=== PATIENT | male | born 1960 | race Caucasian/White ===

== ENCOUNTER 2018-10-16 02:36 | Inpatient (IN) | payer BC ==
[2018-10-16] MEDS ORDERED: ONDANSETRON 4 MG/2 ML VIAL ONE ×2 (03:26→05:54)
[2018-10-16] MEDS ORDERED: NA CHLORIDE 0.9% 1,000 ML ONE (03:26)
[2018-10-16] MEDS ORDERED: FENTANYL CITR 100 MCG/2 ML ONE ×2 (03:26→05:54)
[2018-10-16 03:32] LABS: Absolute Lymphocytes (CBC) 2.8 K/uL (0.7-4.9); Basophils % 1.3 % (0-1.3); Eosinophils % 1.3 % (0-4.4); Hematocrit 51.1 % (39.6-49.0); Lymphocytes % 25.2 % (15.3-44.8); Monocytes % 5.5 % (3.3-12.3); RBC Red Blood Cell Count 5.67 M/uL (4.33-5.43)
[2018-10-16 03:42] LABS: Albumin 4.4 g/dL (3.4-5.0); Bilirubin Total 0.3 mg/dL (0.2-1.0); Potassium 3.1 mmol/L (3.5-5.1); Protein, Total 8.4 g/dL (6.4-8.2)
[2018-10-16] MEDS ORDERED: PIPER/TAZO/NS 3.375gm 3.375 GM/100 ML BAG ONE (05:42)
[2018-10-16] MEDS ORDERED: MORPHINE 4 MG/ML SYR ONE (07:32)
[2018-10-16] MEDS ORDERED: KETOROLAC 30 MG/ML INJ ONE (07:40)
[2018-10-16] MEDS ORDERED: PROMETHAZINE 25 MG/ML VIAL ONE (07:42)
[2018-10-16 07:43] LABS: Urine Blood 1+ (NEG); Urine Glucose NEGATIVE (NEG); Urine Protein 2+ (NEG); Urine Specific Gravity 1.015 (1.005-1.030)
--- NOTE | 2018-10-16 08:33 | EDPHYS ---
Physician Documentation [facility] Name: Demetrio Alvarado Jr Age: 58 yrs Sex: Male : 1960 Arrival Date: 10/16/2018 Time: 02:37 Bed 8 Private MD: ED Physician Vishal Frye HPI: 10/16 03:15 This 58 yrs old Male presents to ER via Wheelchair with complaints of ps1 Abdominal Pain, Vomiting. 03:15 patient has a history of stomach ulcers, gout, HTN, presenting with epigastric pain and ps1 nausea and vomiting. States that he started tonight at 11pm after eating Serbian food. Multiple episodes of vomiting, appears to be food products. No blood. . Historical: - Allergies: 03:02 PENICILLINS; ea - Home Meds: 03:02 tramadol 50 mg Oral tab 1 tab every 6 hours [Active]; gabapentin 300 mg oral cap 1 cap ea 3 times per day [Active]; methocarbamol 500 mg Oral tab 1 tabs 4 times per day [Active]; prednisone 10 mg Oral tab 1 tab [Active]; Allopurinol Oral [Active]; - PMHx: 03:03 Hypertension; ea - PSHx: 03:03 knee surgery; ea - Immunization history:: Adult Immunizations up to date. - Social history:: Smoking status: Patient/guardian denies using tobacco. - Ebola Screening: : No symptoms or risks identified at this time. ROS: 03:15 Constitutional: Negative for fever, chills, and weight loss, Eyes: Negative for injury, ps1 pain, redness, and discharge, Cardiovascular: Negative for chest pain, palpitations, and edema, Respiratory: Negative for shortness of breath, cough, wheezing, and pleuritic chest pain, MS/Extremity: Negative for injury and deformity, Skin: Negative for injury, rash, and discoloration. 03:15 Abdomen/GI: Positive for nausea and vomiting. Exam: 03:15 Constitutional: This is a well developed, well nourished patient who is awake, alert, ps1 and in no acute distress. Head/Face: Normocephalic, atraumatic. Chest/axilla: Normal chest wall appearance and motion. Nontender with no deformity. No lesions are appreciated. Cardiovascular: Regular rate and rhythm. No gallops, murmurs, or rubs. Normal PMI, no JVD. No pulse deficits. Respiratory: Lungs have equal breath sounds bilaterally, clear to auscultation and percussion. No rales, rhonchi or wheezes noted. No increased work of breathing, no retractions or nasal flaring. Skin: Warm, dry with normal turgor. Normal color with no rashes, no lesions, and no evidence of cellulitis. MS/ Extremity: Pulses equal, no cyanosis. Neurovascular intact. Full, normal range of motion. Neuro: Awake and alert, GCS 15, oriented to person, place, time, and situation. Cranial nerves II-XII grossly intact. Sensory grossly intact. 03:15 Abdomen/GI: Inspection: abdomen appears normal, Bowel sounds: normal, Palpation: moderate abdominal tenderness, in the epigastric area. Vital Signs: 03:03 BP 168 / 86; Pulse 84; Resp 20; Temp 97.4; Pulse Ox 99% on R/A; Weight 117.93 kg; ea Height 6 ft. 3 in. (190.50 cm); 04:00 BP 147 / 84; Pulse 67; Resp 18; Pulse Ox 96% on R/A; aa1 05:00 BP 153 / 88; Pulse 66; Resp 18; Pulse Ox 96% on R/A; aa1 06:00 BP 157 / 82; Pulse 74; Resp 18; Pulse Ox 96% on R/A; aa1 06:56 BP 163 / 89; Pulse 78; Resp 18; Pulse Ox 98% on R/A; aa1 08:00 BP 129 / 77; Pulse 80; Resp 16; Pulse Ox 99% on R/A; tr5 09:15 BP 119 / 65; Pulse 70; Resp 15; Pulse Ox 97% on R/A; tr5 03:03 Body Mass Index 32.50 (117.93 kg, 190.50 cm) ea MDM: 03:10 Patient medically screened. ps1 08:30 Data reviewed: vital signs, nurses notes. Data interpreted: Pulse oximetry: on room air kb is 99 %. Interpretation: normal. Counseling: I had a detailed discussion with the patient and/or guardian regarding: the historical points, exam findings, and any diagnostic results supporting the discharge/admit diagnosis, lab results, radiology results, the need for further work-up and treatment in the hospital. Physician consultation: Jordin Gerardo MD was contacted at 08:25, regarding admission, to the medical/surgical unit. consult, patient's condition, and will see patient in inpatient room. 08:31 Physician consultation: Aime Palacios DO was contacted at 08:32, regarding admission, kb to the medical/surgical unit. patient's condition, and will see patient in ED, shortly. 10/16 02:59 Order name: CBC with Diff ps1 10/16 02:59 Order name: Lipase; Complete Time: 03:43 ps1 10/16 02:59 Order name: CMP; Complete Time: 03:43 ps1 10/16 02:59 Order name: CT Abd/Pelvis - IV Contrast Only ps1 10/16 03:00 Order name: CBC with Automated Diff; Complete Time: 03:46 EDMS 10/16 07:33 Order name: Urine Dipstick--Ancillary (enter results); Complete Time: 07:47 eb 10/16 04:41 Order name: Abdomen Limited US; Complete Time: 08:59 ps1 10/16 02:59 Order name: IV Saline Lock; Complete Time: 03:07 ps1 10/16 02:59 Order name: Labs collected and sent; Complete Time: 03:07 ps1 10/16 02:59 Order name: Urine Dipstick-Ancillary (obtain specimen); Complete Time: 07:38 ps1 Administered Medications: 03:10 Drug: Zofran 4 mg Route: IVP; Site: right forearm; aa1 04:10 Follow up: Response: No adverse reaction; Nausea is decreased aa1 03:10 Drug: NS 0.9% 1000 ml Route: IV; Rate: 1 bolus; Site: right forearm; aa1 04:10 Follow up: IV Status: Completed infusion; IV Intake: 1000ml aa1 03:12 Drug: fentaNYL (PF) 100 mcg Route: IVP; Site: right forearm; aa1 04:12 Follow up: Response: No adverse reaction; Pain is decreased aa1 07:00 Follow up: Response: Pain is unchanged, physician notified tr5 05:35 Drug: Zosyn 4.5 grams Route: IVPB; Infused Over: 60 mins; Site: right forearm; aa1 06:35 Follow up: IV Status: Completed infusion; IV Intake: 100ml tl2 06:35 Follow up: IV Status: Completed infusion aa1 05:40 Drug: Zofran 4 mg Route: IVP; Site: right forearm; aa1 09:41 Follow up: Response: Nausea unchanged tr5 05:42 Drug: fentaNYL (PF) 100 mcg Route: IVP; Site: right forearm; aa1 09:41 Follow up: Response: Nausea unchanged tr5 07:35 Drug: Phenergan 12.5 mg Route: IVP; Site: right antecubital; sv 08:23 Follow up: Response: Nausea is decreased tr5 07:35 Drug: TORadol - Ketorolac 15 mg Route: IVP; Site: right antecubital; sv 08:23 Follow up: Response: Pain is decreased tr5 07:36 Not Given (Patient Refused): morphine 4 mg IVP once sv 08:50 Drug: Flagyl 500 mg Volume: 100 ml; Route: IVPB; Rate: 200 ml/hr; Infused Over: 30 ss mins; Site: right antecubital; 09:36 Follow up: Response: No adverse reaction; IV Status: Completed infusion tr5 09:59 Follow up: Response: No adverse reaction; IV Status: Completed infusion tr5 09:36 Drug: NS 0.9% with KCl 40 mEq/L 1000 ml Route: IV; Rate: 125 ml/hr; Site: left forearm; tr5 10:06 Follow up: Response: No adverse reaction; IV Status: Infusion continued upon admission tr5 09:36 Drug: Cipro 400 mg Volume: 200 ml; Route: IVPB; Infused Over: 60 mins; Site: left tr5 forearm; 09:59 Follow up: Response: No adverse reaction; IV Status: Completed infusion tr5 Disposition: 10/16/18 08:32 Hospitalization ordered by Aime Palacios for Inpatient Admission. Preliminary diagnosis is Cholecystitis, unspecified. - Bed requested for Telemetry/MedSurg (Inpatient). - Status is Inpatient Admission. tr5 - Condition is Stable. - Problem is new. - Symptoms are unchanged. UTI on Admission? No Addendum: 10/18/2018 14:02 Co-signature as Attending Physician, Vishal Frye MD Available for consultation at p s1 all times . Signatures: Dispatcher [employer] EDRI Kathi Pisano, ARCELIA BUTT-Payal Paulino RN RN Shari Barkley RN RN aa1 Judith Calzada RN RN Millicent Bales, RN RN Domingo Schmidt, RN RN ja1 Vishal Frye MD MD ps1 Stan White RN RN tr5 Edna Taylor RN tl2 Corrections: (The following items were deleted from the chart) 10/16 08:57 08:32 Hospitalization Ordered by Aime Palacios DO for Inpatient Admission. Preliminary ja1 diagnosis is Cholecystitis, unspecified. Bed requested for Telemetry/MedSurg (Inpatient). Status is Inpatient Admission. Condition is Stable. Problem is new. Symptoms are unchanged. UTI on Admission? No. kb 10:07 08:57 10/16/2018 08:32 Hospitalization Ordered by Aime Palacios DO for Inpatient tr5 Admission. Preliminary diagnosis is Cholecystitis, unspecified. Bed requested for Telemetry/MedSurg (Inpatient). Status is Inpatient Admission. Condition is Stable. Problem is new. Symptoms are unchanged. UTI on Admission? No. ja1
--- NOTE | 2018-10-16 08:33 | ER ---
Nurse's Notes [facility] Name: Demetrio Alvarado Jr Age: 58 yrs Sex: Male : 1960 Arrival Date: 10/16/2018 Time: 02:37 Bed 8 Private MD: Diagnosis: Cholecystitis, unspecified Presentation: 10/16 02:55 Presenting complaint: Patient states: Reports epigastric abdominal pain that started at ea 2300 and progressively got worse, pt reports he started vomiting about an hour ago, had vomiting episodes x 3. Transition of care: patient was not received from another setting of care. Onset of symptoms was October 16, 2018. Risk Assessment: Do you want to hurt yourself or someone else? Patient reports no desire to harm self or others. Initial Sepsis Screen: Does the patient meet any 2 criteria? No. Patient's initial sepsis screen is negative. Does the patient have a suspected source of infection? No. Patient's initial sepsis screen is negative. Care prior to arrival: None. 02:55 Method Of Arrival: Wheelchair ea 02:55 Acuity: ALEXANDRA 3 ea Triage Assessment: 03:05 General: Appears uncomfortable, Behavior is calm, cooperative, appropriate for age. ea Pain: Complains of pain in epigastric area. Neuro: Level of Consciousness is awake, alert, obeys commands, Oriented to person, place, time. Cardiovascular: Patient's skin is warm and dry. GI: Parent/caregiver reports the patient having vomiting. Derm: Skin is pink, warm \T\ dry. Historical: - Allergies: 03:02 PENICILLINS; ea - Home Meds: 03:02 tramadol 50 mg Oral tab 1 tab every 6 hours [Active]; gabapentin 300 mg oral cap 1 cap ea 3 times per day [Active]; methocarbamol 500 mg Oral tab 1 tabs 4 times per day [Active]; prednisone 10 mg Oral tab 1 tab [Active]; Allopurinol Oral [Active]; - PMHx: 03:03 Hypertension; ea - PSHx: 03:03 knee surgery; ea - Immunization history:: Adult Immunizations up to date. - Social history:: Smoking status: Patient/guardian denies using tobacco. - Ebola Screening: : No symptoms or risks identified at this time. Screenin:57 Abuse screen: Denies threats or abuse. Nutritional screening: No deficits noted. ea Tuberculosis screening: No symptoms or risk factors identified. Fall Risk None identified. Assessment: 03:00 General: Appears in no apparent distress. uncomfortable, Behavior is cooperative, aa1 appropriate for age, restless. Pain: Complains of pain in epigastric area Pain began 4 hours ago. Is continuous. Neuro: Level of Consciousness is awake, alert, obeys commands, Oriented to person, place, time, situation, Moves all extremities. Full function Speech is normal. Cardiovascular: Denies chest pain, Heart tones S1 S2 present Rhythm is regular. Respiratory: Airway is patent Respiratory effort is even, unlabored, Respiratory pattern is regular, symmetrical. GI: Abdomen is non-distended, Bowel sounds present X 4 quads. Abd is soft X 4 quads Reports upper abdominal pain, epigastric pain, nausea, vomiting. : No signs and/or symptoms were reported regarding the genitourinary system. EENT: No signs and/or symptoms were reported regarding the EENT system. Derm: Skin is intact, is healthy with good turgor, Skin is pink, warm \T\ dry. Musculoskeletal: Circulation, motion, and sensation intact. Capillary refill < 3 seconds. 04:00 Reassessment: Patient appears in no apparent distress at this time. Patient and/or aa1 family updated on plan of care and expected duration. Pain level reassessed. Patient is alert, oriented x 3, equal unlabored respirations, skin warm/dry/pink. Awaiting CT results. 04:46 Reassessment: Patient appears in no apparent distress at this time. Patient and/or aa1 family updated on plan of care and expected duration. Pain level reassessed. Patient is alert, oriented x 3, equal unlabored respirations, skin warm/dry/pink. Awaiting u/s. 05:35 Reassessment: Patient appears in no apparent distress at this time. Patient and/or aa1 family updated on plan of care and expected duration. Pain level reassessed. Patient is alert, oriented x 3, equal unlabored respirations, skin warm/dry/pink. Pt requesting more pain and nausea medication. 06:56 Reassessment: Patient appears in no apparent distress at this time. Patient and/or aa1 family updated on plan of care and expected duration. Pain level reassessed. Patient is alert, oriented x 3, equal unlabored respirations, skin warm/dry/pink. Pt still awaiting u/s. 07:06 Reassessment: Pt c/o increased pain. Kathi Pisano [employer] notified. fc 07:37 Reassessment: Patient states symptoms have not improved. GI: Reports nausea, vomiting. sv 08:45 Reassessment: Patient appears in no apparent distress at this time. Patient and/or tr5 family updated on plan of care and expected duration. Pain level reassessed. Patient states feeling better. Vital Signs: 03:03 BP 168 / 86; Pulse 84; Resp 20; Temp 97.4; Pulse Ox 99% on R/A; Weight 117.93 kg; ea Height 6 ft. 3 in. (190.50 cm); 04:00 BP 147 / 84; Pulse 67; Resp 18; Pulse Ox 96% on R/A; aa1 05:00 BP 153 / 88; Pulse 66; Resp 18; Pulse Ox 96% on R/A; aa1 06:00 BP 157 / 82; Pulse 74; Resp 18; Pulse Ox 96% on R/A; aa1 06:56 BP 163 / 89; Pulse 78; Resp 18; Pulse Ox 98% on R/A; aa1 08:00 BP 129 / 77; Pulse 80; Resp 16; Pulse Ox 99% on R/A; tr5 09:15 BP 119 / 65; Pulse 70; Resp 15; Pulse Ox 97% on R/A; tr5 03:03 Body Mass Index 32.50 (117.93 kg, 190.50 cm) ea ED Course: 02:37 Patient arrived in ED. ds1 02:47 Vishal Frye MD is Attending Physician. ps1 02:57 Triage completed. ea 02:59 Arm band placed on right wrist. Patient placed in an exam room, on a stretcher, on ea pulse oximetry. 03:03 Patient has correct armband on for positive identification. Bed in low position. Call ea light in reach. 03:07 Initial lab(s) drawn, by me, sent to lab. Inserted saline lock: 20 gauge in right aa1 forearm, using aseptic technique. Blood collected. 03:27 Radiology exam delayed due to lab results not completed at this time. (BUN/Creatinine). ls3 04:19 CT Abd/Pelvis - IV Contrast Only In Process Unspecified. EDMS 06:40 [facility] kb 07:01 Report given to Payal Mesa RN. aa1 07:35 Payal Mesa RN is Primary Nurse. sv 08:01 Ultrasound completed. Patient tolerated well. sg3 08:02 Abdomen Limited US In Process Unspecified. EDMS 08:32 Aime Palacios DO is Hospitalizing Provider. kb 08:58 Primary Nurse role handed off by Payal Mesa RN sv 08:58 Stan White RN is Primary Nurse. sv 09:13 Inserted saline lock: 20 gauge in left forearm, using aseptic technique. tr5 09:30 IV discontinued, 20 gauge to R forearm d/c'd. tr5 09:57 No provider procedures requiring assistance completed. tr5 Administered Medications: 03:10 Drug: Zofran 4 mg Route: IVP; Site: right forearm; aa1 04:10 Follow up: Response: No adverse reaction; Nausea is decreased aa1 03:10 Drug: NS 0.9% 1000 ml Route: IV; Rate: 1 bolus; Site: right forearm; aa1 04:10 Follow up: IV Status: Completed infusion; IV Intake: 1000ml aa1 03:12 Drug: fentaNYL (PF) 100 mcg Route: IVP; Site: right forearm; aa1 04:12 Follow up: Response: No adverse reaction; Pain is decreased aa1 07:00 Follow up: Response: Pain is unchanged, physician notified tr5 05:35 Drug: Zosyn 4.5 grams Route: IVPB; Infused Over: 60 mins; Site: right forearm; aa1 06:35 Follow up: IV Status: Completed infusion; IV Intake: 100ml tl2 06:35 Follow up: IV Status: Completed infusion aa1 05:40 Drug: Zofran 4 mg Route: IVP; Site: right forearm; aa1 09:41 Follow up: Response: Nausea unchanged tr5 05:42 Drug: fentaNYL (PF) 100 mcg Route: IVP; Site: right forearm; aa1 09:41 Follow up: Response: Nausea unchanged tr5 07:35 Drug: Phenergan 12.5 mg Route: IVP; Site: right antecubital; sv 08:23 Follow up: Response: Nausea is decreased tr5 07:35 Drug: TORadol - Ketorolac 15 mg Route: IVP; Site: right antecubital; sv 08:23 Follow up: Response: Pain is decreased tr5 07:36 Not Given (Patient Refused): morphine 4 mg IVP once sv 08:50 Drug: Flagyl 500 mg Volume: 100 ml; Route: IVPB; Rate: 200 ml/hr; Infused Over: 30 ss mins; Site: right antecubital; 09:36 Follow up: Response: No adverse reaction; IV Status: Completed infusion tr5 09:59 Follow up: Response: No adverse reaction; IV Status: Completed infusion tr5 09:36 Drug: NS 0.9% with KCl 40 mEq/L 1000 ml Route: IV; Rate: 125 ml/hr; Site: left forearm; tr5 10:06 Follow up: Response: No adverse reaction; IV Status: Infusion continued upon admission tr5 09:36 Drug: Cipro 400 mg Volume: 200 ml; Route: IVPB; Infused Over: 60 mins; Site: left tr5 forearm; 09:59 Follow up: Response: No adverse reaction; IV Status: Completed infusion tr5 Intake: 04:10 IV: 1000ml; Total: 1000ml. aa1 06:35 IV: 100ml; Total: 1100ml. tl2 Output: 07:30 Gastric: 300ml (Emesis); Total: 300ml. sv Outcome: 08:32 Decision to Hospitalize by Provider. kb 10:06 Admitted to Med/surg accompanied by nurse, via wheelchair, with chart. tr5 10:06 Condition: stable 10:06 Instructed on the need for admit. 10:07 Patient left the ED. tr5 Signatures: Dispatcher [employer] EDLA Kathi Pisano, ARCELIA BUTT-Payal Paulino RN RN sv Autenrieth, Alissa, RN RN aa1 Sandra Thorpe RN RN fc Sanford, Demi ds1 Judith Calzada RN RN ss Knox, Taylor, RN RN tl2 Millicent Bales RN RN ea Singer, Phillip, MD MD ps1 Godinez, Sarah sg3 Siler, Lynzie 3 Stan White RN RN tr5 Corrections: (The following items were deleted from the chart) 09:41 09:15 BP 199 / 65; Pulse 70bpm; Resp 15bpm; Pulse Ox 97% RA; tr5 tr5
--- NOTE | 2018-10-16 08:56 | RAD REPORT ---
EXAM DESCRIPTION: US - Abdomen Exam Limited - 10/16/2018 8:02 am CLINICAL HISTORY: Abdominal pain. COMPARISON: October 16, 2018 cat scan FINDINGS: Multiple gallstones. Borderline gallbladder distention. Gallbladder wall is not thickened. Limited evaluation of the common bile duct. It is not dilated on the CT scan IMPRESSION: Cholelithiasis
[2018-10-16] MEDS ORDERED: POTASSIUM CL 40 MEQ in NA CHLORIDE 0.9% 1,000 ML IV SCH (09:00)
[2018-10-16] MEDS ORDERED: CIPROFLOXACIN 400mg IV 400 MG/200 ML BAG IV ONE (09:05)
[2018-10-16] MEDS ORDERED: METRONIDAZOLE 500mg IVPB 500 MG/100 ML BAG IV ONE (09:05)
[2018-10-16] MEDS ORDERED: ONDANSETRON 4 MG/2 ML VIAL IV PRN (10:29)
[2018-10-16] MEDS ORDERED: ACETAMINOPHEN 650MG/RECT SUPP PR PRN (10:29)
[2018-10-16] MEDS: NA CHLORIDE 0.9% 1,000 ML IV SCH ×2 (10:29→17:29)
[2018-10-16] MEDS ORDERED: PROMETHAZINE 25 MG/ML VIAL IV PRN (10:29)
[2018-10-16] MEDS ORDERED: HYDROCORTISONE SUC 100 MG INJ IV ONE (10:29)
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
[2018-10-16] MEDS: FAMOTIDINE 20 MG/2 ML VIAL IV SCH ×2 (13:23→22:10)
[2018-10-16] MEDS: ENOXAPARIN 40 MG/0.4 ML SQ SCH (13:23)
[2018-10-16] MEDS: MORPHINE 2 MG/ML SYR IV PRN ×2 (13:34→17:29)
[2018-10-16 16:55] LABS: Urine Appearance CLEAR; Urine Bilirubin NEGATIVE (NEG); Urine Blood TRACE (NEG); Urine Color YELLOW; Urine Glucose NEGATIVE (NEG); Urine Protein 1+ (NEG); Urine Specific Gravity 1.015 (1.005-1.030); Urine Urobilinogen 0.2 mg/dL (0.2-1.0)
[2018-10-16] MEDS: METRONIDAZOLE 500mg IVPB 500 MG/100 ML BAG IV SCH (17:10)
[2018-10-16 17:17] LABS: Urine Microscopic Reflex ORDER UMIC
[2018-10-16] MEDS ORDERED: TRAMADOL HCL 50 MG TAB PO PRN (17:19)
[2018-10-16 17:32] LABS: Urine Bacteria NONE SEEN /HPF (NONE SEEN); Urine Culture Reflex Order NOT NEEDED; Urine RBC <5 /HPF (NONE SEEN)
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
[2018-10-16] MEDS: GABAPENTIN 300 MG CAP PO SCH (21:00)
[2018-10-16] MEDS: CIPROFLOXACIN 400mg IV 400 MG/200 ML BAG IV SCH (21:00)
[2018-10-16] MEDS: KETOROLAC 30 MG/ML INJ IV PRN (22:10)
[2018-10-17] MEDS: METRONIDAZOLE 500mg IVPB 500 MG/100 ML BAG IV SCH ×3 (00:22→16:26)
[2018-10-17] MEDS: KETOROLAC 30 MG/ML INJ IV PRN ×3 (05:20→23:34)
[2018-10-17 05:53] LABS: Absolute Lymphocytes (CBC) 2.3 K/uL (0.7-4.9); Basophils % 1.4 % (0-1.3); Eosinophils % 2.6 % (0-4.4); Hematocrit 44.5 % (39.6-49.0); Lymphocytes % 31.5 % (15.3-44.8); MPV 7.4 fL (7.6-11.3); RBC Red Blood Cell Count 4.94 M/uL (4.33-5.43)
[2018-10-17 06:06] LABS: BUN Blood Urea Nitrogen 9 mg/dL (7-18); Bicarbonate 31 mmol/L (21-32); Glucose Level 92 mg/dL (74-106); Magnesium 2.2 mg/dL (1.8-2.4); Potassium 3.9 mmol/L (3.5-5.1); Sodium Level 142 mmol/L (136-145)
[2018-10-17] MEDS ORDERED: KCL 20 MEQ/100 mL IVPB 20 MEQ/100 ML BAG IV SCH (07:00)
[2018-10-17] MEDS: ENOXAPARIN 40 MG/0.4 ML SQ SCH (08:13)
[2018-10-17] MEDS: FAMOTIDINE 20 MG/2 ML VIAL IV SCH ×2 (08:13→20:25)
[2018-10-17] MEDS: GABAPENTIN 300 MG CAP PO SCH ×3 (08:13→20:13)
[2018-10-17] MEDS: ACETAMINOPHEN 500 MG TAB PO PRN ×2 (08:28→20:24)
[2018-10-17] MEDS: CIPROFLOXACIN 400mg IV 400 MG/200 ML BAG IV SCH ×2 (09:17→20:14)
[2018-10-17] MEDS ORDERED: Ringers Lactate 1,000 ML IV ONE ×2 (10:01→12:26)
[2018-10-17] MEDS ORDERED: PROPOFOL 200 MG/20 ML VIAL IV ONE (10:46)
[2018-10-17] MEDS ORDERED: MIDAZOLAM HCL 2 MG/2 ML INJ ONE (10:47)
[2018-10-17] MEDS ORDERED: NEOSTIGMINE 1 MG/ML -10 ML VIAL ONE (10:47)
[2018-10-17] MEDS ORDERED: ONDANSETRON 4 MG/2 ML VIAL ONE (10:47)
[2018-10-17] MEDS ORDERED: FENTANYL CITR 100 MCG/2 ML ONE (10:47)
[2018-10-17] MEDS ORDERED: GLYCOPYRROLATE 0.2 MG/ML SYR ONE (10:47)
[2018-10-17] MEDS ORDERED: LIDOCAINE 1% MPF 5 ML VIAL ONE (10:48)
[2018-10-17] MEDS ORDERED: KETOROLAC 30 MG/ML INJ ONE (10:48)
[2018-10-17] MEDS ORDERED: MORPHINE 10 MG/ML VIAL ONE (10:48)
[2018-10-17] MEDS ORDERED: ROCURONIUM 50 MG/5 ML VIAL IV ONE (10:48)
[2018-10-17] MEDS ORDERED: dexAMETHasone 10 MG/ML VIAL ONE (11:01)
--- NOTE | 2018-10-17 11:54 | P.PN ---
Subjective Date of Service: 10/17/18 Primary Care Provider: SHWETHA Jane; Pain management-Dr. Helms Chief Complaint: Right upper quadrant abdominal pain Subjective: Other (Patient is slightly improved. Patient NPO for anticipated surgery.) Physical Examination - Vital Signs Temperature: 99.2 F Blood Pressure: 150/75 Pulse: 68 Respirations: 16 Pulse Ox (%): 97 - Physical Exam General: Alert, In no apparent distress, Oriented x3, Cooperative HEENT: Atraumatic Neck: Supple Respiratory: Clear to auscultation bilaterally, Normal air movement Cardiovascular: Normal pulses, Regular rate/rhythm Gastrointestinal: Normal bowel sounds, Soft and benign, Non-distended, No masses , No rebound, No guarding Musculoskeletal: No erythema, No tenderness, No warmth Integumentary: No erythema, No warmth, No cyanosis Neurological: Normal speech, Normal strength at 5/5 x4 extr, Normal tone, Normal affect - Studies Medications List Reviewed: Yes Assessment & Plan Discharge Plan: Home Plan to discharge in: 24 Hours Physician Review Additional Text: Impression: Right upper quadrant abdominal pain secondary to acute cholecystitis with cholelithiasis Hyponatremia and hypokalemia likely dehydration Ankylosing spondylitis on chronic steroids Gout Chronic pain Plan: Right upper quadrant abdominal pain secondary to acute cholecystitis with cholelithiasis: Patient remained stable. Continue IV antibiotic therapy. Patient NPO for anticipated surgery. Likely discharge later today after surgery if clinically improved or tomorrow. I will turn the service over to Dr. Brower tomorrow. I will go over the plan of care with her. Hyponatremia and hypokalemia likely dehydration: Continue IV fluids. Will continue to monitor and replace electrolytes. Ankylosing spondylitis on chronic steroids: Patient given IV steroid yesterday. Prednisone will need to be restarted once able to take oral intake. Gout: Continue with medication once able to take oral intake. Chronic pain: Patient takes chronic pain medication including tramadol, gabapentin and muscle relaxer. Will restart medication after surgery as patient is currently NPO. Time Spent Managing Pts Care (In Minutes): 55
[2018-10-17] MEDS ORDERED: MEPERIDINE HCL 50 MG/ML AMP ONE (12:24)
--- NOTE | 2018-10-17 12:36 | P.BOP ---
Preoperative diagnosis: acute cholecystitis, symptomatic cholelithiasis Postoperative diagnosis: same Primary procedure: Laparoscopic cholecystectomy Estimated blood loss: <10cc Specimen: gb Findings: as above Anesthesia: General Complications: None Transferred to: Recovery Room Condition: Good
[2018-10-17] MEDS: HYDROMORPHONE HCL 2 MG/ML inj ONE ×2 (12:40→12:50)
[2018-10-17] MEDS: NA CHLORIDE 0.9% 1,000 ML IV SCH (16:26)
[2018-10-17] MEDS: MORPHINE 2 MG/ML SYR IV PRN (20:25)
--- NOTE | 2018-10-18 00:41 | OP ---
Date of Procedure: 10/17/2018 Surgeon: Jordin Gerardo MD Parole Or Probation Officer: None. Preoperative Diagnoses: Acute cholecystitis, symptomatic cholelithiasis, obesity, and gout on steroi ds. Postoperative Diagnoses: Acute cholecystitis, symptomatic cholelithiasis, obesity, and gout on stero ids. Procedure: Laparoscopic cholecystectomy. Estimated Blood Loss: Less than 10 mL. Anesthesia: General plus local. Findings: Distended, erythematosus, and thickened wall of the gallbladder. Cholelithiasis. Complications: None. Indications: This is a case of a 58-year-old patient, who comes to us with above diagnosis. Fully e xplained the benefits, alternatives, and risks of laparoscopic, possible open cholecystectomy, which include, but not limited to infection, bleeding, damage to adjacent structures, anesthesia complicati ons, choledocholithiasis, bile leak, pancreatitis, OR, and even . He also understands this may not relieve any symptoms. He might need more than one surgical intervention. He understood and sign ed a consent. Description Of Procedure: The patient was brought to the operating room, placed in supine position. Anesthesia was induced without complication. Abdominal area was prepped and draped in a sterile fas hion. Marcaine 0.5% was injected for local anesthetic, followed by sharp incision of skin in the inf raumbilical region. Incision was carried down to fascia, opened under direct vision. Vicryl #1 plac ed on the fascia. Israel trocar was carefully introduced. No bleeding was obtained. I placed 3 mor e trocars, 5 mm trocar in the right upper quadrant under direct visualization. The gallbladder was d istended and thickened, so I have to put an Endo needle under direct visualization and aspirated the gallbladder. A grasper was placed in the fundus of the gallbladder. We have multiple adhesions of o mentum to the gallbladder, so those have to be removed with the help of Bovie cauterizer. Once we hernandez ve all adhesions removed, then we were able to put a grasper in the fundus of the gallbladder, retrac t the gallbladder in the inferolateral fashion exposing the triangle of Calot, and obtaining critical view of safety. Cystic duct and cystic artery were clearly isolated free circumferentially and a co nnection between those and the gallbladder were clearly identified. I proceeded to ligate those by u sing at least 3 clips proximal, 1 clip distal, ligation in middle. Same was done with the cystic art kathy. A small little branch of the cystic artery was also ligated. The hepatic arteries and common b ile duct were preserved at all times. The gallbladder was removed from liver using Bovie cauterizer and removed from abdominal cavity using an EndoCatch through the umbilical incision. After securing complete hemostasis and after the area was irrigated, then we proceeded to remove the trocars under d irect vision. I have to mention that I have to extend the incision in umbilical area since the gallb ladder was so large, it did not want to come through the initial incision. So, we were able to reinf orce the periumbilical region with #1 Vicryl multiple times. Then, 3-0 chromic for the subcutaneous tissue and donavan for the skin. Sponge count and instrument counts were correct. The patient wyatt ated the procedure well. The patient was sent to recovery in stable condition. JENNIFER/MINDY Voice ID: [id number] Report ID: [id number]
[2018-10-18] MEDS: TRAMADOL HCL 50 MG TAB PO PRN ×2 (01:14→06:46)
[2018-10-18] MEDS: METRONIDAZOLE 500mg IVPB 500 MG/100 ML BAG IV SCH ×2 (01:16→08:02)
[2018-10-18] MEDS: NA CHLORIDE 0.9% 1,000 ML IV SCH ×2 (02:29→05:05)
[2018-10-18] MEDS: ACETAMINOPHEN 500 MG TAB PO PRN (05:03)
[2018-10-18] MEDS: KETOROLAC 30 MG/ML INJ IV PRN (05:04)
[2018-10-18 06:10] LABS: Absolute Lymphocytes (CBC) 1.1 K/uL (0.7-4.9); Basophils % 0.3 % (0-1.3); Eosinophils % 0.1 % (0-4.4); Hematocrit 41.5 % (39.6-49.0); Lymphocytes % 10.7 % (15.3-44.8); MPV 7.6 fL (7.6-11.3); Monocytes % 5.6 % (3.3-12.3); RBC Red Blood Cell Count 4.61 M/uL (4.33-5.43)
[2018-10-18 06:14] LABS: BUN Blood Urea Nitrogen 10 mg/dL (7-18); Bicarbonate 26 mmol/L (21-32); Glucose Level 110 mg/dL (74-106); Magnesium 2.2 mg/dL (1.8-2.4); Potassium 3.8 mmol/L (3.5-5.1); Sodium Level 144 mmol/L (136-145)
[2018-10-18] MEDS ORDERED: POTASSIUM 25 MEQ EFFERV TAB PO ONE (06:20)
[2018-10-18] MEDS: GABAPENTIN 300 MG CAP PO SCH (08:02)
[2018-10-18] MEDS: FAMOTIDINE 20 MG/2 ML VIAL IV SCH (08:02)
[2018-10-18] MEDS: CIPROFLOXACIN 400mg IV 400 MG/200 ML BAG IV SCH (09:11)
--- NOTE | 2018-10-18 12:21 | P.DS ---
Admission Date: 10/16/18 Discharge Date: 10/18/18 Primary Care Provider: SHWETHA Jane; Pain management-Dr. Helms Disposition: ROUTINE DISCHARGE Discharge Condition: GOOD Reason for Admission: Right upper quadrant abdominal pain Consultations: General surgery Procedures: Lap choly - Problems (1) Acute cholecystitis Current Visit: Yes Status: Acute Brief History of Present Illness: 58-year-old male presented to the emergency room with right upper quadrant abdominal pain. Pain started last night. Pain mainly to the right upper quadrant without radiation. Rated the pain about a 10/10. It was associated with some nausea and vomiting. The pain persisted. He came to the ER for further evaluation. In the ER patient evaluated. White count 10.9, hemoglobin 16. Sodium 140, potassium 3.1, creatinine 1.01 with a GFR 75. Glucose 115. LFTs unremarkable. Urinalysis unremarkable. CT abdomen showed cholelithiasis with inflammation to the gallbladder wall. Abdominal ultrasound shows cholelithiasis. Patient admitted for further evaluation and treatment. When I saw the patient in the ER, pain seemed to improve. Patient had been given several doses of medication for nausea. Patient with history of ankylosing spondylitis, chronic pain, chronic steroid use, gout. Hospital Course: Overall during the hospital stay patient remained stable Patient was initially admitted to the hospital for right upper quadrant pain. Was found to have cholecystitis. General surgery was consulted. Patient had a laparoscopic cholecystectomy done. Patient tolerated the procedure well. Once he was able to ambulate and tolerate his diet well. He was then discharged home under stable condition. Patient was also given prescription for p.o. antibiotics ciprofloxacin and Flagyl. Patient was asked to follow up with [facility] 1-2 days post discharge as well. Patient demonstrate understanding and thus was discharged home under stable condition. Vital Signs/Physical Exam: Temp Pulse Resp BP Pulse Ox 97.0 F 78 16 161/85 H 97 10/18/18 08:00 10/18/18 08:00 10/18/18 08:00 10/18/18 08:00 10/18/18 08:00 General: Alert, In no apparent distress HEENT: Atraumatic, PERRLA, EOMI Neck: Supple, JVD not distended Respiratory: Clear to auscultation bilaterally, Normal air movement Cardiovascular: Regular rate/rhythm, Normal S1 S2 Gastrointestinal: Normal bowel sounds, No tenderness Musculoskeletal: No tenderness Integumentary: No rashes Neurological: Normal speech, Normal tone, Normal affect Lymphatics: No axilla or inguinal lymphadenopathy Laboratory Data at Discharge: WBC 10.2 K/uL (4.3-10.9) D 10/18/18 05:40 Hgb 13.7 g/dL (13.6-17.9) 10/18/18 05:40 Hct 41.5 % (39.6-49.0) 10/18/18 05:40 Plt Count 247 K/uL (152-406) 10/18/18 05:40 Sodium 144 mmol/L (136-145) 10/18/18 05:40 Potassium 3.8 mmol/L (3.5-5.1) 10/18/18 05:40 BUN 10 mg/dL (7-18) 10/18/18 05:40 Creatinine 0.75 mg/dL (0.55-1.3) 10/18/18 05:40 Glucose 110 mg/dL (74-106) H 10/18/18 05:40 Magnesium 2.2 mg/dL (1.8-2.4) 10/18/18 05:40 Total Bilirubin 0.3 mg/dL (0.2-1.0) 10/16/18 03:10 AST 17 U/L (15-37) 10/16/18 03:10 ALT 38 U/L (12-78) 10/16/18 03:10 Alkaline Phosphatase 75 U/L (45-117) 10/16/18 03:10 Lipase 107 U/L (73-393) 10/16/18 03:10 Home Medications: Allopurinol 300 mg PO DAILY 10/16/18 Gabapentin 600 mg PO TID 10/16/18 Methocarbamol 500 mg PO TID 10/16/18 Omeprazole 20 mg PO DAILY 10/16/18 Tramadol HCl [Ultram] 50 mg PO Q6HP PRN 10/16/18 predniSONE [Deltasone*] 10 mg PO DAILY 10/16/18 Ciprofloxacin HCl 500 mg PO BID #14 tablet 10/18/18 metroNIDAZOLE [Flagyl] 500 mg PO Q8H #28 tablet 10/18/18 New Medications: Ciprofloxacin HCl 500 mg PO BID #14 tablet metroNIDAZOLE [Flagyl] 500 mg PO Q8H #28 tablet Diet: Regular Activity: Ad breann Followup: Jordin Gerardo MD [ACTIVE - CAN ADMIT] - 1-2 Weeks
--- NOTE | 2018-10-18 12:42 | RAD REPORT ---
EXAM DESCRIPTION: CT - Abdomen Pelvis W Contrast - 10/16/2018 4:35 am CLINICAL HISTORY: Epigastric pain. COMPARISON: None Available. TECHNIQUE: CT of the abdomen and pelvis performed following IV administration of iodinated contrast. DLP: 2667.3 mGycm FINDINGS: Lung Bases: Minimal bibasilar atelectasis. Calcified granuloma. Bones: No destructive bone lesions identified. Abdomen: Liver: The liver has normal size and decreased density. No intrahepatic mass or biliary dilatation. Gallbladder: No calcified gallstones. Mild wall thickening of the gallbladder. Spleen, Pancreas, and Adrenal Glands: The spleen, pancreas, and adrenal glands are unremarkable. Kidneys: The kidneys have normal size and contour without evidence of solid mass or hydronephrosis. Vasculature: Aortoiliac atherosclerosis. IVC is unremarkable. The portal vein is patent. The proxim al visceral and renal arteries are patent. Stomach: The stomach and duodenum have normal course. Other: No free intraperitoneal air. Small fat-containing umbilical hernia. No free fluid or lymphad enopathy. Pelvis: Bladder: Urinary bladder is unremarkable. Bowel: No dilated loops of large or small bowel. Mild wall thickening of the transverse and descend ing colon. Scattered diverticula of the colon. Appendix: Normal appendix. Pelvis: Prostate is not enlarged. IMPRESSION 1. Possible mild gallbladder wall thickening. No calcified gallstones identified. Right u pper quadrant ultrasound could provide additional characterization and evaluation for cholelithiasis. 2. Mild wall thickening of the transverse and descending colon. This may represent mild colitis of in fectious or inflammatory etiology. 3. Diverticulosis without evidence of acute diverticulitis. 4. Hepatic steatosis. This exam was performed according to our departmental dose-optimization program, which includes autom ated exposure control, adjustment of the mA and/or kV according to patient size and/or use of iterati ve reconstruction technique. Electronically signed by: Jose Ramon Shi 10/16/2018 4:30 AM CDT Due to temporary technical issues with the PACS/Fluency reporting system, reports are being signed by the in house radiologist as a courtesy to ensure prompt reporting. The interpreting radiologist is f ully responsible for the content of the report.
== END 2018-10-18 12:30 | disposition home or self-care (01) | DRG 418 ==
LOC: ER 02:36 → ERHOLD 08:43 → 4TH 09:57
PROVIDERS: ADMIT Family Medicine; ATTEND Family Medicine
PROC: 0FT44ZZ Resection of Gallbladder, Percutaneous Endoscopic Approach (ICD-10-PCS; principal; 2018-10-17 10:00)
DX: K80.00 Calculus of gallbladder with acute cholecystitis without obstruction (principal); E87.1 Hypo-osmolality and hyponatremia; K66.0 Peritoneal adhesions (postprocedural) (postinfection); I10 Essential (primary) hypertension; M45.9 Ankylosing spondylitis of unspecified sites in spine; M10.9 Gout, unspecified; E87.6 Hypokalemia; E86.0 Dehydration; E66.9 Obesity, unspecified; Z68.32 Body mass index [BMI] 32.0-32.9, adult; Z87.891 Personal history of nicotine dependence; Z88.0 Allergy status to penicillin
CPT/HCPCS: 36415; 74177; 76705; 80048; 80053; 81003; 81015; 83690; 83735; 84132; 85025; 87040; 88304; 99285; J0744; J1100; J1170; J1650; J1720; J2175; J2250; J2270; J2405; J2543; J2550; J2704; J2710; J3010; J7030; Q9967

== ENCOUNTER 2022-01-01 09:21 | Day surgery (SDC) | payer OTHER ==
[2021-12-30 11:29] LABS: SARS-CoV-2 Antigen Rapid Res Negative (Negative)
[2022-01-01] MEDS: Ringers Lactate 1,000 ML IV ONE (09:56)
[2022-01-01] MEDS ORDERED: LIDOCAINE 1% MPF 5 ML VIAL ONE (11:39)
[2022-01-01] MEDS ORDERED: propofoL 200 MG/20 ML VIAL IV ONE ×3 (11:39→12:19)
[2022-01-01] MEDS ORDERED: IBUPROFEN 400 MG TAB PO ONE (12:28)
[2022-01-01 12:34] VITALS: BP 137/79; TEMP 97.1; O2SAT 100
[2022-01-01] MEDS ORDERED: IBUPROFEN 400 MG TAB ONE (12:37)
[2022-01-01] MEDS ORDERED: IBUPROFEN 200 MG TAB PO ONE (12:37)
--- NOTE | 2022-01-01 12:37 | ENDO RPT ---
[address], [address] COLONOSCOPY PROCEDURE REPORT EXAM DATE: 01/01/2022 PATIENT NAME: Demetrio Alvarado MR #: [id number] BIRTHDATE: 1960 ATTENDING: Jordin Gerardo MD STATUS: outpatient FITTINGS TIGHTENER: Willa Delaney and Valeria Ruelas RN INDICATIONS: The patient is a 61 yr old Male here for a colonoscopy due to cologuard positive PROCEDURE PERFORMED: Colonoscopy with biopsy - cold polypectomy MEDICATIONS: Per Anesthesia. ESTIMATED BLOOD LOSS: None CONSENT: The patient understands the risks and benefits of the procedure and understands that these risks include, but are not limited to: sedation, allergic reaction, infection, perforation and/or bleeding. Alternative means of evaluation and treatment include, among others: physical exam, x-rays, and/or surgical intervention. The patient elects to proceed with this endoscopic procedure. DESCRIPTION OF PROCEDURE: During intra-op preparation period all mechanical medical equipment was checked for proper function. Hand hygiene and appropriate measures for infection prevention was taken. Procedure, possible complications, alternatives including, but not limited to possibility of bleeding, perforation, tear, infection, sepsis, need for surgery, need for blood transfusion, were explained to the patient. After the risks, benefits and alternatives of the procedure were thoroughly explained, Informed consent was verified, confirmed and timeout was successfully executed by the treatment team. The patient was placed in the left lateral position. A digital rectal exam was performed and revealed external hemorrhoids. After appropriate level of anesthesia, the scope was passed. The EC-[id number] ([id number]) endoscope was introduced through the anus and advanced to the cecum, which was identified by transillumination from the light source, the appendix, and the ileocecal valve. The quality of the prep was good. The instrument was then slowly withdrawn as the colon was fully examined. Scope withdrawal time was . COLON FINDINGS: Polyp. Multiple sessile polyps were found 20, 25, 30,140cm from anal verge and ascending colon. Retroflexed views revealed no abnormalities. The scope was then completely withdrawn from the patient and the procedure terminated. ADVERSE EVENTS: There were no complications. IMPRESSIONS: 1. Polyp 2. Sessile polyp 3. External hemorrhoids 4. Internal hemorrhoids RECOMMENDATIONS: 1. await biopsy results 2. follow-up: office 1 week(s) RECALL: for Colonoscopy, pending biopsy results. Jordin Gerardo MD eSigned: Jordin Gerardo MD 01/01/2022 12:37 PM cc: Jordin Gerardo M.D. CPT CODES: ICD9 CODES: PATIENT NAME: Demetrio AlvaradoJaimee MR#: [id number]
--- NOTE | 2022-01-01 12:38 | ENDO RPT ---
[address], [address] COLONOSCOPY PROCEDURE REPORT EXAM DATE: 01/01/2022 PATIENT NAME: Demetrio Alvarado MR #: [id number] BIRTHDATE: 1960 ATTENDING: Jordin Gerardo MD STATUS: outpatient ELECTRONICS MECHANIC APPRENTICE: Willa Delaney and Valeria Ruelas RN INDICATIONS: The patient is a 61 yr old Male here for a colonoscopy due to cologuard positive PROCEDURE PERFORMED: Colonoscopy with biopsy - cold polypectomy MEDICATIONS: Per Anesthesia. ESTIMATED BLOOD LOSS: None CONSENT: The patient understands the risks and benefits of the procedure and understands that these risks include, but are not limited to: sedation, allergic reaction, infection, perforation and/or bleeding. Alternative means of evaluation and treatment include, among others: physical exam, x-rays, and/or surgical intervention. The patient elects to proceed with this endoscopic procedure. DESCRIPTION OF PROCEDURE: During intra-op preparation period all mechanical medical equipment was checked for proper function. Hand hygiene and appropriate measures for infection prevention was taken. Procedure, possible complications, alternatives including, but not limited to possibility of bleeding, perforation, tear, infection, sepsis, need for surgery, need for blood transfusion, were explained to the patient. After the risks, benefits and alternatives of the procedure were thoroughly explained, Informed consent was verified, confirmed and timeout was successfully executed by the treatment team. The patient was placed in the left lateral position. A digital rectal exam was performed and revealed external hemorrhoids. After appropriate level of anesthesia, the scope was passed. The EC-[id number] ([id number]) endoscope was introduced through the anus and advanced to the cecum, which was identified by transillumination from the light source, the appendix, and the ileocecal valve. The quality of the prep was good. The instrument was then slowly withdrawn as the colon was fully examined. Scope withdrawal time was . COLON FINDINGS: Polyp. Multiple sessile polyps were found 20, 25, 30,140cm from anal verge and ascending colon. Retroflexed views revealed no abnormalities. The scope was then completely withdrawn from the patient and the procedure terminated. ADVERSE EVENTS: There were no complications. IMPRESSIONS: 1. Polyp 2. Sessile polyp 3. External hemorrhoids 4. Internal hemorrhoids RECOMMENDATIONS: 1. await biopsy results 2. follow-up: office 1 week(s) RECALL: for Colonoscopy, pending biopsy results. Jordin Gerardo MD eSigned: Jordin Gerardo MD 01/01/2022 12:37 PM cc: Jordin Gerardo M.D. CPT CODES: ICD9 CODES: PATIENT NAME: Demetrio AlvaradoJaimee MR#: [id number]
== END 2022-01-01 13:49 | disposition home or self-care (01) ==
LOC: OR 09:21
PROVIDERS: ATTEND Surgery
PROC: 0DBN8ZX Excision of Sigmoid Colon, Via Natural or Artificial Opening Endoscopic, Diagnostic (ICD-10-PCS; 2022-01-01)
PROC: 0DBK8ZX Excision of Ascending Colon, Via Natural or Artificial Opening Endoscopic, Diagnostic (ICD-10-PCS; principal; 2022-01-01 11:15)
DX: R19.5 Other fecal abnormalities (principal); D12.2 Benign neoplasm of ascending colon; D12.5 Benign neoplasm of sigmoid colon; K64.8 Other hemorrhoids; K64.4 Residual hemorrhoidal skin tags; Z20.822 Contact with and (suspected) exposure to COVID-19
CPT/HCPCS: 36415; 87811; 88305; J2001; J2704; J7120